=== PATIENT | female | born 1955 | race Caucasian/White ===

== ENCOUNTER → 2018-02-18 | Outpatient (CLI) | payer OTHER ==
[~2018-02-18] MED LIST: DIA5 PO; GABA-549 PO; HYDR-4309 PO; ONDA8TAB94 PO; TRAM-420 PO; [UNRECOGNIZED DRUG - REMARK]
[2018-02-18 08:20] LABS: PLATELET COUNT, AUTOMATED 282 K/uL (150-450)
--- NOTE | 2018-02-18 09:05 | RADIOLOGY IMAGING REPORT ---
FACILITY: [facility] PATIENT NAME: Vicki Lacey : 1955 MR: [id number] V: [id number] EXAM DATE: ORDERING PHYSICIAN: LENY MARTIN TECHNOLOGIST: Location: [facility] Patient: Vicki Lacey : 1955 Visit/Account:[id number] Date of Sevice: 02/18/2018 THYROID HISTORY: thyroid nodule on MRI C spine COMPARISON: MR C-spine January 08, 2018 FINDINGS: SIZE: Right lobe: 4.2 x 1.1 x 1 cm Left lobe: 5.7 x 2 x 2.3 cm Isthmus: 2 mm PARENCHYMA: Homogeneous. NODULES: Right lobe: * In the inferior right lobe there is a 1 cm solid well-circumscribed hypoechoic nodule Left lobe: * In the superior right lobe there is a 2.2 x 1.4 x 1.7 cm solid hypoechoic hypervascular nodule. * In the mid left lobe there is a 1.4 x 1.3 x 1 cm slightly irregular complex nodule. * In the inferior right lobe there is a 2.5 x 1.7 x 1.8 cm complex hypoechoic slightly hypervascular nodule. Isthmus: * None discrete. VASCULARITY: Within normal limits. ADDITIONAL FINDINGS: None. IMPRESSION: 1 cm solid well-circumscribed hypoechoic nodule inferior right lobe There are three solid nodules in the left lobe all of the left nodules should be biopsied by ultrasou nd-guided fine-needle aspiration REFERENCE: 2015 [place] Management Guidelines for Adult Patients with Thyroid Nodules and D ifferentiated Thyroid Cancer: The [place] [employer] Guidelines Task Force on Thyroid Nodul es and Differentiated Thyroid Cancer. SONOGRAPHIC PATTERNS: * Benign: Purely cystic nodules (no solid component); estimated risk of malignancy <1 percent; no bi opsy recommended. * Very Low Suspicion: Spongiform or partially cystic nodules without any of the sonographic features described in low, intermediate, or high suspicion patterns; estimated risk of malignancy <3 percent; consider FNA at > 2 cm (Observation without FNA is also a reasonable option). * Low Suspicion: Isoechoic or hyperechoic solid nodule, or partially cystic nodule with eccentric so lid areas, without microcalcification, irregular margin or ETE (extra-thyroidal extension), or taller than wide shape; estimated risk of malignancy 5-10 percent; recommend FNA at >1.5 cm. * Intermediate Suspicion: Hypoechoic solid nodule with smooth margins without microcalcifications, E TE (extra-thyroidal extension), or taller than wide shape; estimated risk of malignancy 10-20 percent ; recommend FNA at > 1 cm. * High Suspicion: Solid hypoechoic nodule or solid hypoechoic component of a partially cystic nodule with one or more of the following features: irregular margins (infiltrative, microlobulated), microc alcifications, taller than wide shape, rim calcifications with small extrusive soft tissue component, evidence of ETE (extra-thyroidal extension); estimated risk of malignancy >70-90 percent; recommend FNA at > 1 cm. NOTES: * Although a sonographically suspicious subcentimeter thyroid nodule without evidence of extrathyroi elio extension or sonographically suspicious lymph nodes may be observed with close sonographic follow -up rather than pursuing immediate FNA, patient age and preference may modify decision-making. A > 50% interval increase in nodule volume and/or development of new suspicious sonographic features are felt to be a valid reasons for potential re-aspiration of a nodule previously shown to have benig n FNA cytology. Report Dictated By: Cely Ramesh MD at 02/18/2018 8:58 AM Report E-Signed By: Cely Ramesh MD at 02/18/2018 9:02 AM WSN:[email or web address]
[2018-02-18 09:56] LABS: LDL CHOLESTEROL 133 mg/dl
== END ==
LOC: US 07:55
PROVIDERS: ATTEND Internal Medicine
DX: E04.2 Nontoxic multinodular goiter (principal); R73.9 Hyperglycemia, unspecified
CPT/HCPCS: 36415; 76536; 82040; 82247; 82310; 82374; 82435; 82465; 82565; 82947; 83036; 83718; 84075; 84132; 84155; 84295; 84439; 84443; 84450; 84460; 84478; 84520; 85025

== ENCOUNTER → 2018-02-20 | Outpatient (CLI) | payer OTHER ==
[2018-02-20 10:23] LABS: INR 0.91
--- NOTE | 2018-02-20 15:37 | RADIOLOGY IMAGING REPORT ---
FACILITY: [facility] PATIENT NAME: Vicki Lacey : 1955 MR: [id number] V: [id number] EXAM DATE: ORDERING PHYSICIAN: LENY MARTIN TECHNOLOGIST: Location: [facility] Patient: Vicki Lacey : 1955 Visit/Account:[id number] Date of Sevice: 02/20/2018 Exam type: THYROID BIOPSY FINE NEEDLE ASP History: Multiple left-sided thyroid nodules Comparison: Thyroid ultrasound February 18, 2018. Findings: The patient stated she had recently taken ibuprofen three days prior to the procedure. She also stat ed she developed a sore throat this morning and needs to swallow every few seconds. The procedure wa s discussed with the patient and it was decided to reschedule the patient next week once her sore thr oat has resolved and she no longer feels the need to swallow every few seconds. IMPRESSION: 1. Ultrasound-guided thyroid biopsy was rescheduled for next week Report Dictated By: Cely Ramesh MD at 02/20/2018 3:31 PM Report E-Signed By: Cely Ramesh MD at 02/20/2018 3:32 PM WSN:[email or web address]
== END ==
LOC: US 05:53
PROVIDERS: ATTEND Internal Medicine
DX: Z01.818 Encounter for other preprocedural examination (principal); E04.1 Nontoxic single thyroid nodule
CPT/HCPCS: 10022; 36415; 76942; 85610; 85730

== ENCOUNTER → 2018-03-04 | Outpatient (CLI) | payer OTHER ==
--- NOTE | 2018-03-04 17:13 | RADIOLOGY IMAGING REPORT ---
FACILITY: [facility] PATIENT NAME: Vicki Lacey : 1955 MR: [id number] V: [id number] EXAM DATE: ORDERING PHYSICIAN: LENY MARTIN TECHNOLOGIST: Location: [facility] Patient: Vicki Lacey : 1955 Visit/Account:[id number] Date of Sevice: 03/04/2018 Exam type: THYROID BIOPSY FINE NEEDLE ASP History: Three enlarged left-sided thyroid nodules Comparison: Thyroid ultrasound 02/20/2018. Findings: Informed consent was obtained. The left-sided patient's neck was prepped and draped in usual sterile fashion. Local anesthesia was accomplished with 1% lidocaine. Four 25-gauge core biopsies were obt ained through each of the three enlarged left-sided thyroid nodules under sonographic guidance. The samples were given to the mechatronics technologist for processing. Adequate hemostasis was obtained. The procedure was accomplished without apparent complication. IMPRESSION: 1. Successful sonographically guided FNA biopsy of three separate left-sided thyroid nodules Report Dictated By: Cely Ramesh MD at 03/04/2018 5:07 PM Report E-Signed By: Cely Ramesh MD at 03/04/2018 5:09 PM WSN:[email or web address]
== END ==
LOC: US 01:22
PROVIDERS: ATTEND Internal Medicine
DX: E04.9 Nontoxic goiter, unspecified (principal)
CPT/HCPCS: 10022; 76942; 88104; 88172

== ENCOUNTER → 2018-09-01 | Outpatient (CLI) | payer BC ==
[~2018-09-01] MED LIST changes: -HYDR-4309 PO; +HYDR-653 PO
== END ==
LOC: SPU 16:21
DX: N30.01 Acute cystitis with hematuria (principal)
CPT/HCPCS: 51701; 81001; 87077; 87088; 87186

== ENCOUNTER → 2018-09-01 | Outpatient (CLI) | payer BC ==
--- NOTE | 2018-09-01 16:38 | RADIOLOGY IMAGING REPORT ---
FACILITY: [facility] PATIENT NAME: Vicki Lacey : 1955 MR: [id number] V: [id number] EXAM DATE: ORDERING PHYSICIAN: TAMARA LAMBERT TECHNOLOGIST: Location: [facility] Patient: Vicki Lacey : 1955 Visit/Account:[id number] Date of Sevice: 09/01/2018 ABDOMEN/PELVIS W/O CONTRAST HISTORY: Hematuria, nephrolithiasis, right-sided flank pain TECHNIQUE: Axial images acquired through the abdomen/pelvis. Coronal and sagittal reformatting also performed. No IV contrast administered.Dose Lowering Technique One of the following dose optimization techniques was utilized in the performance of this exam: Autom ated exposure control; adjustment of the mA and/or kV according to the patient's size; or use of an i terative reconstruction technique. Specific details can be referenced in the facility's radiology C T exam operational policy. COMPARISON: CT IVP May 03, 2008 FINDINGS: Visualized lung bases: Negative. Hepatobiliary: There are postsurgical changes from a cholecystectomy. A tiny calcified granulomas n oted in the inferior left lobe Spleen: Calcified granulomas Adrenals: Negative. Pancreas: Negative. Kidneys ureters and bladder: There is no demonstration of urolithiasis, hydronephrosis or hydroureter . Multiple small air bubbles are noted within the bladder. This could be related to recent instrume ntation although the differential diagnosis would include a vesicle colic fistula or infection with g as-forming organism Genitalia: Hysterectomy GI: Negative. Vessels/spaces/nodes: Negative. Bones/soft tissues: Spondylotic changes lumbar spine Additional findings: None pertinent. IMPRESSION: There is no evidence of urolithiasis, hydronephrosis or hydroureter There are multiple small air bubbles within the bladder. This could be related to recent instrumenta tion although the differential diagnosis would include a vesicle colic fistula or infection with gas- forming organism Report Dictated By: Cely Ramesh MD at 09/01/2018 4:27 PM Report E-Signed By: Cely Ramesh MD at 09/01/2018 4:35 PM WSN:[email or web address]
== END ==
LOC: CT 15:46
DX: M47.817 Spondylosis without myelopathy or radiculopathy, lumbosacral region (principal); D73.9 Disease of spleen, unspecified; R31.1 Benign essential microscopic hematuria; N20.0 Calculus of kidney
CPT/HCPCS: 74176